=== PATIENT | female | born 1955 | race Caucasian/White ===

== ENCOUNTER 2023-09-09 09:00 | Outpatient (OUT) | payer MEDICARE, SELFPAY ==
[2023-09-09 09:39] LABS: Estimated Average Glucose 120 mg/dL; Glycohemoglobin A1C 5.8 % (4.5-6.2)
[2023-09-09 10:18] LABS: Alanine Aminotransferase 39 U/L (14-59); Albumin Globulin Ratio 0.9; Albumin Level 3.2 g/dL (3.4-5.0); Alkaline Phosphatase 109 U/L (46-116); Anion Gap 11.8; Aspartate Amino Transferase 24 U/L (15-37); BUN Creatinine Ratio 18.5; Bilirubin Total 0.4 mg/dL (0.2-1.0); Calcium 9.2 mg/dL (8.5-10.1); Carbon Dioxide 30.6 mmol/L (21.0-32.0); Chloride 106 mmol/L (98-107); Chol HDL Ratio 2.9; Cholesterol 155 mg/dL (<=200); Estimated GFR (African America >60 (>=60); Estimated GFR (Non-African Ame >60 (>=60); Free T3 2.31 pg/mL (2.18-3.98); Globulin 3.6 g/dL; Glucose 120 mg/dL (74-106); HDL Cholesterol 54 mg/dL (40-60); Potassium 4.4 mmol/L (3.5-5.1); Sodium 144 mmol/L (136-145); Thyroid Stimulating Hormone 0.522 uIU/mL (0.358-3.740); Total Protein 6.8 g/dL (6.4-8.2); Triglycerides 125 mg/dL (<=150)
[2023-09-09 10:36] LABS: Basophils Absolute Auto 0.1 10^3/uL (0.0-0.1); Basophils Percent Auto 0.7 % (0.2-2.0); Eosinophils Absolute Auto 0.1 10^3/uL (0.0-0.7); Eosinophils Percent Auto 1.7 % (0.9-7.0); Hemoglobin 14.5 g/dL (12.0-16.0); Immature Granulocytes Abs Auto 0.03 10^3/uL (0.00-0.03); Immature Granulocytes Pct Auto 0.4 % (0.0-0.5); Lymphocytes Percent Auto 36.4 % (20.5-60.0); Mean Corpuscular HGB Conc 32.2 g/dL (29.9-35.2); Mean Corpuscular Hemoglobin 31.1 pg (26.7-34.0); Mean Corpuscular Volume 96.6 fL (81.0-99.0); Mean Platelet Volume 11.1 fL (9.5-13.5); Monocytes Absolute Auto 0.6 10^3/uL (0.3-0.8); Monocytes Percent Auto 7.8 % (1.7-12.0); Neutrophils Absolute Auto 4.4 10^3/uL (1.4-6.5); Platelet Count 224 10^3/uL (150-450); Red Blood Count 4.66 10^6/uL (4.20-5.40); Red Cell Distribution Width 13.1 % (11.0-15.0); White Blood Count 8.2 10^3/uL (4.0-11.0)
[2023-09-09 13:21] LABS: Occult Blood Positive
== END 2023-09-09 09:01 | disposition home or self-care (01) ==
LOC: LAB 09:03
PROVIDERS: PCP Family Medicine; Visit Provider Family Medicine
DX: E03.9 Hypothyroidism, unspecified (principal); I10 Essential (primary) hypertension; J44.9 Chronic obstructive pulmonary disease, unspecified; E78.5 Hyperlipidemia, unspecified
CPT/HCPCS: 36415; 80053; 80061; 82306; 83036; 83525; 83540; 84436; 84443; 84481; 85025; G0328

== ENCOUNTER 2023-09-15 12:54 | Outpatient (OUT) | payer MEDICARE, SELFPAY | END 2023-09-15 12:55 | disposition home or self-care (01) | LOC: MN 12:55 | PROVIDERS: PCP Family Medicine | DX: E11.8 Type 2 diabetes mellitus with unspecified complications (principal) | CPT/HCPCS: 95250; G0108 ==

== ENCOUNTER 2024-07-20 11:27 | Outpatient (OUT) | payer MEDICARE, SELFPAY ==
[2024-07-20 12:02] LABS: Basophils Percent Auto 0.5 % (0.2-2.0); Eosinophils Absolute Auto 0.2 10^3/uL (0.0-0.7); Eosinophils Percent Auto 1.8 % (0.9-7.0); Hematocrit 44.9 % (36.0-48.0); Hemoglobin 15.3 g/dL (12.0-16.0); Immature Granulocytes Abs Auto 0.02 10^3/uL (0.00-0.03); Immature Granulocytes Pct Auto 0.2 % (0.0-0.5); Lymphocytes Absolute Auto 3.4 10^3/uL (1.2-3.8); Lymphocytes Percent Auto 39.7 % (20.5-60.0); Mean Corpuscular HGB Conc 34.1 g/dL (29.9-35.2); Mean Corpuscular Hemoglobin 31.2 pg (26.7-34.0); Mean Corpuscular Volume 91.6 fL (81.0-99.0); Mean Platelet Volume 10.3 fL (9.5-13.5); Monocytes Absolute Auto 0.7 10^3/uL (0.3-0.8); Monocytes Percent Auto 8.8 % (1.7-12.0); Neutrophils Absolute Auto 4.1 10^3/uL (1.4-6.5); Platelet Count 223 10^3/uL (150-450); Red Cell Distribution Width 12.4 % (11.0-15.0); White Blood Count 8.4 10^3/uL (4.0-11.0)
[2024-07-20 12:10] LABS: Estimated Average Glucose 114 mg/dL; Glycohemoglobin A1C 5.6 % (4.5-6.2)
[2024-07-20 12:28] LABS: Alanine Aminotransferase 57 U/L (14-59); Albumin Level 3.4 g/dL (3.4-5.0); Alkaline Phosphatase 106 U/L (46-116); Anion Gap 9.8; Aspartate Amino Transferase 31 U/L (15-37); BUN Creatinine Ratio 18.2; Bilirubin Total 0.5 mg/dL (0.2-1.0); Calcium 9.3 mg/dL (8.5-10.1); Carbon Dioxide 32.6 mmol/L (21.0-32.0); Chloride 106 mmol/L (98-107); Cholesterol 160 mg/dL (<=200); Estimated GFR (African America >60 (>=60 mL/min/1.73m^2); Estimated GFR (Non-African Ame >60 (>=60 mL/min/1.73m^2); Free T3 2.65 pg/mL (2.18-3.98); Globulin 3.5 g/dL; Glucose 104 mg/dL (74-106); HDL Cholesterol 53 mg/dL (40-60); Potassium 4.4 mmol/L (3.5-5.1); Sodium 144 mmol/L (136-145); Thyroid Stimulating Hormone 0.075 uIU/mL (0.358-3.740); Total Protein 6.9 g/dL (6.4-8.2); Triglycerides 194 mg/dL (<=150); VLDL CHOLESTEROL 38.8 mg/dL
== END 2024-07-20 11:28 | disposition home or self-care (01) ==
LOC: LAB 11:29
PROVIDERS: PCP Family Medicine; Visit Provider Family Medicine
DX: I10 Essential (primary) hypertension (principal); E05.90 Thyrotoxicosis, unspecified without thyrotoxic crisis or storm; E78.5 Hyperlipidemia, unspecified; R53.83 Other fatigue; R73.09 Other abnormal glucose; J44.1 Chronic obstructive pulmonary disease with (acute) exacerbation; E05.00 Thyrotoxicosis with diffuse goiter without thyrotoxic crisis or storm; Z12.12 Encounter for screening for malignant neoplasm of rectum; E03.9 Hypothyroidism, unspecified
CPT/HCPCS: 36415; 80053; 80061; 83036; 84436; 84443; 84481; 85025

== ENCOUNTER 2024-08-03 10:48 | Outpatient (OUT) | payer MEDICARE, SELFPAY ==
--- NOTE | 2024-08-03 10:52 | MM_ITS ---
Patient Name: KHALIDA PRUITT MR#: [id number] : 1955 Exam Date: 08/03/2024 Ordering Doctor: DR Sarbjit Pink . RADIOLOGY REPORT PROCEDURE: MM TOMOSYNTHESIS SCREENING BI COMPARISON: MG MAMM SCREEN 3D BARRY CAD, 10/09/2022. MG MAMM SCREEN BARRY W CAD, 03/16/2019. MG MAMM BARRY SCRN W CAD DIG, 05/17/2016. MG MAMM BARRY SCRN W CAD DIG, 11/10/2012. INDICATIONS: Screening for malignant neoplasm Calculator Name NCI Breast Cancer Risk Assessment Tool 5 Year Breast Cancer Risk 2.90% Lifetime Breast Cancer Risk 8.90% Personal Breast Cancer No Personal Ovarian Cancer No Treatments None Family Cancers Mother with breast cancer at age 50. LOCATION: [facility] BREAST COMPOSITION: The breasts are almost entirely fatty. FINDINGS: DIAGNOSTIC CATEGORY 1--NEGATIVE. LEFT BREAST: No significant suspicious finding. RIGHT BREAST: No significant suspicious finding. RECOMMENDATIONS: ROUTINE MAMMOGRAM AND CLINICAL EVALUATION IN 12 MONTHS. PLEASE NOTE: A NORMAL MAMMOGRAM DOES NOT EXCLUDE THE POSSIBILITY OF BREAST CANCER. A CLINICALLY SUSPICIOUS PALPABLE LUMP SHOULD BE BIOPSIED. Dictated by: Arpan Giron DO on 08/03/2024 at 16:28 Approved by: Arpan Giron DO on 08/03/2024 at 16:28
--- OUTSIDE RECORDS SUMMARY | 2024-08-03 10:52 | XMS_ITS | CCD ---
Author Organization [facility] Care Team Providers Care Steward/[employer] Name Role Phone SHAD ., DR BLANCHARD Primary Care Unavailable NTAALIYAY ., DR BLANCHARD Admitting Unavailable HOY ., DR BLANCHARD Attending Unavailable HOY ., DR BLANCHARD Consulting Unavailable ASHWINI, DR BONG Slater Consulting Unavailable HOY ., DR BLANCHARD Primary Care Unavailable HOY ., DR BLANCHARD Admitting Unavailable HOY ., DR BLANCHARD Attending Unavailable HOY ., DR BLANCHARD Consulting Unavailable EFRAÍN STUBBS Attending Unavailable Allergies Allergy Classification Reported Allergen(s) Allergy Type Date of Onset Reaction(s) Facility (1 source) Morphine Drug Allergy 03-19-[address] [facility] Repository Problems Active Problems Problem Classification Problem Date Documented Da te Episodic/Chronic Disorders of lipid metabolism (4 sources) Pure hyperglyceridemia; Translations: [PURE HYPERGLYCERIDEMIA] Onset: 03-18-2022 Chronic Nutritional deficiencies (1 source) Vitamin D deficiency, unspecified; Translations: [VITAMIN D DEFICIENCY UNSPECIFIED] Onset: 03-20-2022 Chronic Thyroid disorders (1 source) Thyrotoxicosis, unspecified without thyrotoxic crisis or storm; Translations: [THYROTOXICOS UNS NO THYROTOX CRISIS] Onset: 03-20-2022 Chronic Past or Other Problems Problem Classification Problem Date Documented Da te Episodic/Chronic Deficiency and other anemia (1 source) Anemia, unspecified; Translations: [ANEMIA UNSPECIFIED] Onset: 03-20-2022 Episodic Diabetes mellitus without complication (1 source) Hyperglycemia, unspecified; Translations: [HYPERGLYCEMIA UNSPECIFIED] Onset: 03-20-2022 Episodic Malaise and fatigue (1 source) Other fatigue; Translations: [OTHER FATIGUE] Onset: 03-20-2022 Episodic Other aftercare (1 source) Other intermodal truck driver (current) drug therapy; Translations: [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 Admission #: [id number] Family : Order #: [id number] CLICK HERE TO VIEW EXAM RADIOLOGY REPORT PROCEDURE: MAMMOGRAM SCREENING 3D BILATERAL CAD COMPARISON: MG MAMM SCREEN BARRY W CAD, 03/16/2019. MG MAMM BARRY SCRN W CAD DIG, 05/17/2016. MG MAMM BARRY SCRN W CAD DIG, 05/16/2015. DIGITIZED_MAMMO, 03/28/2009. INDICATIONS: Screening mammography Calculator Name NCI Breast Cancer Risk Assessment Tool 5 Year Breast Cancer Risk 2.90% Lifetime Breast Cancer Risk 9.70% Personal Breast Cancer No Personal Ovarian Cancer No Treatments None Family Cancers Mother with breast cancer at age 50. LOCATION: [facility] BREAST COMPOSITION: Almost entirely fatty. FINDINGS: DIAGNOSTIC CATEGORY 1--NEGATIVE. RIGHT BREAST: No significant suspicious finding. No significant change has occurred. LEFT BREAST: No significant suspicious finding. No significant change has occurred. RECOMMENDATIONS: ROUTINE MAMMOGRAM AND CLINICAL EVALUATION IN 12 MONTHS. PLEASE NOTE: A NORMAL MAMMOGRAM DOES NOT EXCLUDE THE POSSIBILITY OF BREAST CANCER. A CLINICALLY SUSPICIOUS PALPABLE LUMP SHOULD BE BIOPSIED. Dictated by: Bong Cordon M.D. on 10/09/2022 at 12:14 Approved by: Bong Cordon M.D. on 10/09/2022 at 12:[address] [facility] CBC AUTO DIFFon 03-18-2022 BASO # 0.1 103/ul Normal 0.0-0.[address] [facility] Comment on above: Performed By: #### C BC #### [facility] [address] [address] [address] Néstor Serna Basophils/100 WBC (Bld) 0.6 % Normal 0.2-2.0 [facility] Comment on above: Performed By: #### C BC #### [facility] [address] [place] [address] Dr. Néstor Serna EO # 0.2 103/ul Normal 0.0-0.[address] [facility] Comment on above: Performed By: #### C BC #### [facility] [address] [place] [address] Dr. Néstor Serna Eosinophils/100 WBC (Bld) 1.9 % Normal 0.9-7.[address] [facility] Comment on above: Performed By: #### C BC #### [facility] [address] [place] [address] Dr. Néstor Serna Erythrocyte distribution width (RBC) [Ratio] 12.6 % Normal 11.0-15.[address] [facility] Comment on above: Performed By: #### C BC #### [facility] [address] [place] [address] Dr. Néstor Serna Hematocrit (Bld) [Volume fraction] 45.2 % Normal 36.0-48.0 [facility] Comment on above: Performed By: #### C BC #### [facility] [address] [place] [address] Dr. Néstor Serna Hemoglobin (Bld) [Mass/Vol] 14.9 g/dL Normal 12.0-16.[address] [facility] Comment on above: Performed By: #### C BC #### [facility] [address] [place] [address] Dr. Néstor Serna IG # 0.02 10e3/ul Normal 0.00-0.[address] [facility] Comment on above: Performed By: #### C BC #### [facility] [address] [place] [address] Dr. Néstor Serna IG % 0.3 % Normal 0.0-0.[address] [facility] Comment on above: Performed By: #### C BC #### [facility] [address] [place] [address] Dr. Néstor Serna LYMPH # 3.3 103/ul Normal 1.2-3.[address] [facility] Comment on above: Performed By: #### C BC #### [facility] [address] [place] [address] Dr. Néstor Serna Lymphocytes/100 WBC (Bld) 41.6 % Normal 20.5-60.0 [facility] Comment on above: Performed By: #### C BC #### [facility] [address] [place] [address] Dr. Néstor Serna MANUAL DIFF REQ NO Normal [facility] Comment on above: Performed By: #### C BC #### [facility] [address] [place] [address] Dr. Néstor Serna MCH (RBC) [Entitic mass] 30.7 pg Normal 26.7-34.0 [facility] Comment on above: Performed By: #### C BC #### [facility] [address] [place] [address] Dr. Nésotr Serna MCHC (RBC) [Mass/Vol] 33.0 g/dL Normal 29.9-35.[address] [facility] Comment on above: Performed By: #### C BC #### [facility] [address] [place] [address] Dr. Néstor Serna MCV (RBC) [Entitic vol] 93.2 fL Normal 81.0-99.0 [facility] Comment on above: Performed By: #### C BC #### [facility] [address] [place] [address] Dr. Néstor Serna MONO # 0.5 103/ul Normal 0.3-0.8 [facility] Comment on above: Performed By: #### C BC #### [facility] [address] [place] [address] Dr. Néstor Serna Monocytes/100 WBC (Bld) 6.5 % Normal 1.7-12.[address] [facility] Comment on above: Performed By: #### C BC #### [facility] [address] [place] [address] Dr. Néstor Serna NEUT # 3.9 103/ul Normal 1.4-6.[address] [facility] Comment on above: Performed By: #### C BC #### [facility] [address] [place] [address] Dr. Néstor Serna Neutrophils/100 WBC (Bld) 49.1 % Normal 43.0-75.0 [facility] Comment on above: Performed By: #### C BC #### [facility] [address] [place] [address] Dr. Néstor Serna Platelet mean volume (Bld) [Entitic vol] 10.4 fL Normal 9.5-13.5 [facility] Comment on above: Performed By: #### C BC #### [facility] [address] [place] [address] Dr. Néstor Serna PLT 212 103/ul Normal 150-[address] [facility] Comment on above: Performed By: #### C BC #### [facility] [address] [place] [address] Dr. Néstor Serna RBC 4.85 106/ul Normal 4.20-5.40 [facility] Comment on above: Performed By: #### C BC #### [facility] [address] [place] [address] Dr. Néstor Serna WBC 7.8 103/ul Normal 4.0-11.0 [facility] Comment on above: Performed By: #### C BC #### [facility] [address] [place] [address] Dr. Néstor Serna FREE T3on 03-18-2022 FREE T3 2.36 pg/mlL Normal 2.18-3.98 [facility] Comment on above: Performed By: #### T 4, TSH, CMP, FT3, LIPID #### [facility] [address] [place] [address] Dr. Néstor Serna GLYCOHEMOGLOBIN A1Con 2021 ADA RECOMMENDATION SEE BELOW Normal [facility] Comment on above: Result Comment: ADA RECOMMENDED LIMIT 4.0 - 6.0 ADA THERAPEUTIC TARGET < 7.0 ACTION SUGGESTED > 7.0 Performed By: #### A 1C #### [facility] [address] [place] [address] Dr. Néstor Serna Glucose [Mass/Vol] 128 mg/dL Normal [facility] Comment on above: Performed By: #### A 1C #### [facility] [address] [place] [address] Dr. Néstor Serna HbA1c (Bld) [Mass fraction] 6.1 % Normal 4.5-6.2 [facility] Comment on above: Performed By: #### A 1C #### [facility] [address] [place] [address] Dr. Néstor Serna LIPID PROFILEon 03-18-2022 CHOL-HDL RATIO NORM SEE BELOW Normal [facility] Comment on above: Result Comment: 3.3 - 4.4 LOW RISK 4.4 - 7.1 AVERAGE RISK 7.1 - 11.0 MODERATE RISK >11.0 HIGH RISK Performed By: #### T 4, TSH, CMP, FT3, LIPID #### [facility] [address] [place] [address] Dr. Néstor Serna Cholesterol [Mass/Vol] 162 mg/dL Normal <=200 [facility] Comment on above: Performed By: #### T 4, TSH, CMP, FT3, LIPID #### [facility] [address] [place] [address] Dr. Néstor Serna Cholesterol in HDL [Mass/Vol] 49 mg/dL Normal 40-60 [facility] Comment on above: Performed By: #### T 4, TSH, CMP, FT3, LIPID #### [facility] [address] [place] [address] Dr. Néstor Serna Cholesterol in LDL [Mass/Vol] 70.0 mg/dL Normal [facility] Comment on above: Performed By: #### T 4, TSH, CMP, FT3, LIPID #### [facility] [address] [place] [address] Dr. Néstor Serna Cholesterol.total/Cho lesterol in HDL [Mass ratio] 3.3 {ratio} Normal [facility] Comment on above: Performed By: #### T 4, TSH, CMP, FT3, LIPID #### [facility] [address] [place] [address] Dr. Néstor Serna HDL NORMAL > or = 60 mg/dl - LOW CARDIOVASCULAR RISK <40 mg/dl - HIGH CARDIOVASCULAR RISK Normal [facility] Comment on above: Performed By: #### T 4, TSH, CMP, FT3, LIPID #### [facility] [address] [address] [address] Néstor Serna LDL CALC NORMAL SEE BELOW Normal [facility] Comment on above: Result Comment: <100 mg/dl OPTIMAL 100 - 129 mg/dl NEAR OR ABOVE OPTIMAL 130 - 159 mg/dl BORDERLINE HIGH 160 - 189 mg/dl HIGH >190 mg/dl VERY HIGH Performed By: #### T 4, TSH, CMP, FT3, LIPID #### [facility] [address] [address] [address] Néstor Serna Triglyceride [Mass/Vol] 215 mg/dL Critically high <=150 [facility] Comment on above: Performed By: #### T 4, TSH, CMP, FT3, LIPID #### [facility] [address] [place] [address] Dr. Néstor Serna VLDL CALC 43.0 mg/dL Normal [facility] Comment on above: Performed By: #### T 4, TSH, CMP, FT3, LIPID #### [facility] [address] [place] [address] Dr. Néstor Serna PROF 14(COMP METB)on 022 Albumin [Mass/Vol] 3.4 g/dL Normal 3.4-5.0 [facility] Comment on above: Performed By: #### T 4, TSH, CMP, FT3, LIPID #### [facility] [address] [place] [address] Dr. Néstor Serna Albumin/Globulin [Mass ratio] 0.9 {ratio} Normal [facility] Comment on above: Performed By: #### T 4, TSH, CMP, FT3, LIPID #### [facility] [address] [address] [address] Néstor Serna ALP [Catalytic activity/Vol] 126 U/L Critically high 46-116 [facility] Comment on above: Performed By: #### T 4, TSH, CMP, FT3, LIPID #### [facility] [address] [address] [address] Néstor Serna ALT [Catalytic activity/Vol] 59 U/L Normal 14-59 [facility] Comment on above: Performed By: #### T 4, TSH, CMP, FT3, LIPID #### [facility] [address] [address] [address] Néstor Serna Anion gap [Moles/Vol] 9.3 mmol/L Normal [facility] Comment on above: Performed By: #### T 4, TSH, CMP, FT3, LIPID #### [facility] [address] [address] [address] Néstor Serna AST [Catalytic activity/Vol] 34 U/L Normal 15-[address] [facility] Comment on above: Performed By: #### T 4, TSH, CMP, FT3, LIPID #### [facility] [address] [place] [address] Dr. Néstor Serna Bilirubin [Mass/Vol] 0.4 mg/dL Normal 0.2-1.0 [facility] Comment on above: Performed By: #### T 4, TSH, CMP, FT3, LIPID #### [facility] [address] [address] [address] Néstor Serna Calcium [Mass/Vol] 8.8 mg/dL Normal 8.5-10.1 [facility] Comment on above: Performed By: #### T 4, TSH, CMP, FT3, LIPID #### [facility] [address] [place] [address] Dr. Néstor Serna Chloride [Moles/Vol] 105 mmol/L Normal 98-[address] [facility] Comment on above: Performed By: #### T 4, TSH, CMP, FT3, LIPID #### [facility] [address] [place] [address] Dr. Néstor Serna CO2 [Moles/Vol] 30.7 mmol/L Normal 21.0-32.0 [facility] Comment on above: Performed By: #### T 4, TSH, CMP, FT3, LIPID #### [facility] [address] [place] [address] Dr. Néstor Serna Creatinine [Mass/Vol] 0.64 mg/dL Normal 0.55-1.[address] [facility] Comment on above: Performed By: #### T 4, TSH, CMP, FT3, LIPID #### [facility] [address] [address] [address] Néstor Serna EGFR-AF BURMESE >60 Normal >=60 [facility] Comment on above: Performed By: #### T 4, TSH, CMP, FT3, LIPID #### [facility] [address] [place] [address] Dr. Néstor Serna EGFR-NON AF BURMESE >60 Normal >=60 [facility] Comment on above: Performed By: #### T 4, TSH, CMP, FT3, LIPID #### [facility] [address] [place] [address] Dr. Néstor Serna Globulin (S) [Mass/Vol] 3.6 g/dL Normal [facility] Comment on above: Performed By: #### T 4, TSH, CMP, FT3, LIPID #### [facility] [address] [place] [address] Dr. Néstor Serna Glucose [Mass/Vol] 103 mg/dL Normal 74-106 [facility] Comment on above: Performed By: #### T 4, TSH, CMP, FT3, LIPID #### [facility] [address] [place] [address] Dr. Néstor Serna Potassium [Moles/Vol] 4.0 mmol/L Normal 3.5-5.1 [facility] Comment on above: Performed By: #### T 4, TSH, CMP, FT3, LIPID #### [facility] [address] [address] [address] Néstor Serna Protein [Mass/Vol] 7.0 g/dL Normal 6.4-8.2 [facility] Comment on above: Performed By: #### T 4, TSH, CMP, FT3, LIPID #### [facility] [address] [place] [address] Dr. Néstor Serna Sodium [Moles/Vol] 141 mmol/L Normal 136-145 [facility] Comment on above: Performed By: #### T 4, TSH, CMP, FT3, LIPID #### [facility] [address] [address] [address] Néstor Serna Urea nitrogen [Mass/Vol] 15.0 mg/dL Normal 7.0-18.0 [facility] Comment on above: Performed By: #### T 4, TSH, CMP, FT3, LIPID #### [facility] [address] [place] [address] Dr. Néstor Serna Urea nitrogen/Creatinine [Mass ratio] 23.4 mg/mg Normal [facility] Comment on above: Performed By: #### T 4, TSH, CMP, FT3, LIPID #### [facility] [address] [address] [address] Néstor Serna T4on 03-18-2022 T4 [Mass/Vol] 13.80 ug/dL Normal 4.80-13.90 [facility] Comment on above: Performed By: #### T 4, TSH, CMP, FT3, LIPID #### [facility] [address] [address] [address] Néstor Serna TSHon 03-18-2022 TSH 0.123 uIU/mL Critically low 0.358-3.740 [facility] Comment on above: Performed By: #### T 4, TSH, CMP, FT3, LIPID #### [facility] [address] [address] [address] Néstor Serna VITAMIN D 25 OHon 03-18-2022 VIT D 25-OH 29.3 ng/mL Normal [facility] Comment on above: Performed By: #### V ITAD #### [facility] [address] [address] [address] Néstor Serna VIT D RANGES SEE BELOW Normal [facility] Comment on above: Result Comment: <20 ng/mL Vit D deficient 20 - <30 ng/mL Vit D insufficient 30 - 100 ng/mL Vit D sufficient >100 ng/mL Potential Toxicity Performed By: #### V ITAD #### [facility] [address] [place] [address] Dr. Néstor Serna Encounters Encounter Date Encounter Type Care Provider Facility Start: 11-24-2023 End: 11-24-2023 ambulatory EFRAÍN STUBBS Not Available Start: 10-09-2022 End: 10-10-[address] SANTO KULKARNI . Facility[facility] Start: 03-18-2022 End: 03-19-[address] SANTO KULKARNI . Facility[facility] Payers Date Payer Category Payer Private Health Insurance [id number] 1959 Medicare [id number] 1959 Private Health Insurance CVL [id number] 1955 Unknown [id number] 1955 Unknown [id number] 1955 Unknown [id number] Summary Purpose Family History No Family History Records FoundNo Family History Records Found Advance Directives No Advanced Directives Records FoundNo Advanced Directives Records Found Additional Source Comments INFORMATION SOURCE (unrecogn ized section and content) DATE CREATED AUTHOR 10/10/2022 [facility] DATE CREATED AUTHOR AUTHOR'S MELISSA ATKATHE 11/25/2023 [facility] EPIC FOR RECORDS PERTAINING TO PATIENTS WHO ARE OR HAVE BEEN ENROLLED IN A CHEMICAL DEPENDENCY/SUBSTANCEABUSE PROGRAM, SOME INFORMATION MAY BE OMITTED. This clinical summary was aggregated from multiple sources. Caution should be exercised in using it in the provision of clinical care. This summary normalizes information from multiple sources, and as a consequence, information in this document may materially change the coding, format and clinical context of patient data. In addition, data may be omitted in some cases. CLINICAL DECISIONS SHOULD BE BASED ON THE PRIMARY CLINICAL RECORDS. [facility] provides no warranty or guarantee of the accuracy or completeness of information in this document.
== END 2024-08-03 10:49 | disposition home or self-care (01) ==
LOC: MAMMO 10:49
PROVIDERS: PCP Family Medicine; Visit Provider Family Medicine
DX: Z12.31 Encounter for screening mammogram for malignant neoplasm of breast (principal); Z80.3 Family history of malignant neoplasm of breast
CPT/HCPCS: 77063; 77067

== ENCOUNTER 2024-09-20 10:20 | Outpatient (OUT) | payer MEDICARE, SELFPAY ==
[2024-09-20 11:29] LABS: Free T3 2.61 pg/mL (2.18-3.98); Thyroid Stimulating Hormone 0.163 uIU/mL (0.358-3.740)
== END 2024-09-20 10:21 | disposition home or self-care (01) ==
LOC: LAB 10:21
PROVIDERS: PCP Family Medicine; Visit Provider Family Medicine
DX: E03.9 Hypothyroidism, unspecified (principal)
CPT/HCPCS: 36415; 84436; 84443; 84481

== ENCOUNTER 2025-01-17 15:53 | Outpatient (OUT) | payer MEDICARE, SELFPAY ==
--- OUTSIDE RECORDS SUMMARY | 2024-12-29 09:15 | XMS_ITS ---
Author Organization The [facility] in [place] Address [address] [place] [address] Care Team Providers Care Security Representative Name Role Phone Jefe Pink Primary Care Provider [phone] Allergies Allergen (clinical drug ingredient) Drug/Non Drug Allergy documented on EMR Reaction Allergy Type Onset Date Status Substance with sulfonamide structure and antibacterial mechanism of action (substance) Sulfa Antibiotics face turned red Drug Allergy Active morphine Morphine nausea and vomiting Drug Allergy Active REASON FOR VISIT Eczema- Bilateral Feet Medications Medication SIG (Take, Route, Frequency, Duration) Notes Start Date End Date Status Latanoprost 0.005 % Ophthalmic for 25 Days Active Lisinopril 20 MG 1 tablet Orally Once a day for 30 days 08/03/2024 Active Levothyroxine Sodium 112 MCG 1 tablet in the morning on an empty stomach Orally Once a day for 90 days Active Nebulizer Mask Adult - as directed Active Nebulizer - as directed Active Fish Oil 1000 MG 3 capsule Orally Once a day Active Dorzolamide HCl-Timolol Mal 2-0.5 % instill 1 DROP IN BOTH EYES TWICE DAILY Ophthalmic for 50 Days Active Lancets - as directed for 30 days test daily DX: E11.9 09/10/2023 Active Glucose Meter Test - as directed In Vitr o daily for 30 days glucose meter DX E11.9 09/10/2023 Active Carvedilol 6.25 mg TAKE 1 TABLET BY MOUTH TWICE DAILY WITH FOOD for 30 days Active Albuterol Sulfate (2.5 MG/3ML) 0.083% 3 mL as needed Inhalation every 6 hrs DX J44.1 for 30 days PRN 01/24/2023 Active Clobetasol Propionate 0.05 % 1 application Externally Twice a day for 10 days 12/29/2024 Active ALPRAZolam 0.5 MG 1 tablet Orally Twice a day for 30 days PRN 12/17/2024 Active Albuterol Sulfate HFA 108 (90 Base) MCG/ACT 1 puff as needed Inhalation every 4 hrs for 30 days PRN Active Breo Ellipta 100-25 MCG/ACT 1 puff Inhalation Once a day for 90 days Active Vitamin D3 50 MCG (2000 UT) 1 capsule Orally Once a day for 30 days 09/12/2023 Active True Metrix Blood Glucose Test - USE DIRECTED to test BLOOD SUGAR DAILY for 30 Active Simvastatin 40 mg TAKE 1 TABLET BY MOUTH IN THE EVENING for 90 Active Social History Tobacco Use: Social History Observation Description Date Details (start date - stop date) Former Smoker NA - NA Tobacco Use/Smoking Question Answer Notes Patient is a former smoker How long has it been since you last smoked? 6-12 months AUDIT-C (Standard) Question Answer Notes Did you have a drink containing alcohol in the p ast year? No Points 0 Interpretation Negative Vital Signs Weight 187 lbs 12/29/2024 Height 64 in 12/29/2024 Blood pressure systolic 140 mm Hg 12/30/19 25 Blood pressure diastolic 80 mm Hg 025 BMI 32.09 kg/m2 12/29/2024 Encounters Encounter Location Date Provider Diagnosis [address] [address] 12/29/2024 Jefe Pink Eczema L30.9 Assessments Encounter Date Diagnosis (ICD Code) Assessment Notes Treatment Notes Treatment Clinical Notes Section Notes 12/29/2024 Eczema (ICD-10 - L30.9) Plan Of Treatment Medication Medication Name Sig Start Date Stop Date Notes Clobetasol Propionate 0.05 % 1 applicati on Externally Twice a day for 10 days 12/29/2024 Progress Notes * Katharine PRUITT LDOB:[birth year] (69 yo F)Acc No.[id number]:12/29/2024 Progress Note Patient: Katharine ROBBINS Provider: Kuldip Pink (MATTHIEU)MD :1955 A ge:69 Y S ex:Female Date:12/29/2024 Address:[place], [id number] Check In:01:03 PM ESTCheck O ut:01:37 PM EST Subjective: * Chief Complaints: * E czema- Bilateral Feet * HPI: G eneral: getting red scaling and blisters - adn peeling hands and feet. * Active Problem List M19.90 Osteoarthritis Modified On:09/12/2022 Status:confirmed F17.210 Cigarette smoker Modified On:09/12/2022 Status:confirmed F41.9 Anxiety Modified On:09/25/2022 Status:confirmed R60.9 Edema Modified On:09/01/2023 Status:confirmed I10 Essential hypertensi on Modified On:02/25/2023 Status:confirmed M85.80 Osteopenia Modified On:09/12/2022 Status:confirmed G47.00 Insomnia Modified On:09/12/2022 Status:confirmed L30.9 Eczema Modified On:09/12/2022 Status:confirmed R14.0 Abdominal bloating Modified On:09/12/2022 Status:confirmed K57.90 Diverticulosis Modified On:09/12/2022 Status:confirmed M54.9 Back pain Modified On:09/12/2022 Status:confirmed E78.1 Hypertriglyceridemia Modified On:09/12/2022 Status:confirmed B07.8 Other viral warts Modified On:09/12/2022 Status:confirmed C51.0 Malignant neoplasm o f labium majus Modified On:09/12/2022 Status:confirmed K11.5 Sialolithiasis Modified On:09/12/2022 Status:confirmed R09.1 Pleurisy Modified On:02/05/2023 Status:confirmed B35.1 Onychomycosis Modified On:10/04/2022 Status:confirmed Z00.00 Well adult Modified On:09/01/2023 Status:confirmed E05.90 Hyperthyroidism Modified On:09/01/2023 Status:confirmed R07.89 Chest wall pain Modified On:09/12/2022 Status:confirmed M50.30 Degenerative cervica l disc Modified On:09/12/2022 Status:confirmed M54.6 Back pain, thoracic Modified On:09/12/2022 Status:confirmed E05.00 Graves' disease Modified On:09/01/2023 Status:confirmed J31.0 Chronic nonallergic rhinitis Modified On:09/12/2022 Status:confirmed M25.40 Joint effusion Modified On:09/12/2022 Status:confirmed J44.9 COPD, mild Modified On:10/04/2022 Status:confirmed K43.6 Other ventral hernia with obstruction Modified On:09/12/2022 Status:confirmed 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 Modified On:09/12/2022 Status:confirmed J44.1 COPD with exacerbati on Modified On:09/01/2023 Status:confirmed E21.3 Hyperparathyroidism Modified On:09/06/2022 Status:confirmed H40.9 Glaucoma, unspecifie d glaucoma type, unspecified laterality Modified On:09/06/2022 Status:confirmed E03.9 Hypothyroidism, unsp ecified type Modified On:09/06/2022 Status:confirmed E78.5 Hyperlipidemia, unsp ecified hyperlipidemia type Modified On:09/01/2023 Status:confirmed E11.9 Diabetes Modified On:11/20/2023 Status:confirmed I10 Hypertension Modified On:10/08/2024 Status:confirmed * Medical History: * Surgical History: T otal Abdominal Hysterectomy Right Knee Arthroscopy left shoulder surgery polypectomy vocal cords hernia repair tubal precancerous skin lesion vaginal eye surgery x3 from graves disease repair of deviated septum * Hospitalization/Major Diagno stic Procedure: Freddy reidchitis 08/2022 * Family History: F ather: , Heart Disease. M other: , accidental drowning, ovarian cancer, diagnosed with Other malignant neoplasm of unspecified site. B josie(s): alive. S ister(s): . D carlos(s): alive. 1 brother(s) , 1 sister(s) . 1 daughter(s) - healthy. .? * Social History: T obacco Use: T obacco Use/Smoking P atient is a f ormer smoker H ow long has it been since you last smoked??6-12 months D rug/Alcohol: A LYSSA-C (Standard) D id you have a drink containing alcohol in the past year? N o P oints 0 I nterpretation N egative * Medications: T akingAlbuterol Sulfate (2.5 MG/3ML) 0.083% Nebulization Solution 3 mL as needed Inhalation every 6 hrs DX J44.1 , Notes to Pharmacist: PRNAlbuterol Sulfate HFA 108 (90 Base) MCG/ACT Aerosol Solution 1 puff as needed Inhalation every 4 hrs , Notes to Pharmacist: PRNALPRAZolam 0.5 MG Tablet 1 tablet Orally Twice a day , Notes to Pharmacist: PRNBreo Ellipta(Fluticasone Furoate-Vilanterol) 100-25 MCG/ACT Aerosol Powder Breath Activated 1 puff Inhalation Once a day Carvedilol 6.25 mg Tablet TAKE 1 TABLET BY MOUTH TWICE DAILY WITH FOOD Dorzolamide HCl-Timolol Mal 2-0.5 % Solution instill 1 DROP IN BOTH EYES TWICE DAILY Ophthalmic Fish Oil 1000 MG Capsule 3 capsule Orally Once a day Glucose Meter Test(Glucose Blood) - Strip as directed In Vitro daily , Notes to Pharmacist: glucose meter DX E11.9Lancets - Miscellaneous as directed test daily, Notes to Pharmacist: DX: E11.9Latanoprost 0.005 % Solution Ophthalmic Levothyroxine Sodium 112 MCG Capsule 1 tablet in the morning on an empty stomach Orally Once a day Lisinopril 20 MG Tablet 1 tablet Orally Once a day Nebulizer - Device as directed Nebulizer Mask Adult(Respiratory Therapy Supplies) - Miscellaneous as directed Simvastatin 40 mg Tablet TAKE 1 TABLET BY MOUTH IN THE EVENING True Metrix Blood Glucose Test(Glucose Blood) - Strip USE DIRECTED to test BLOOD SUGAR DAILY Vitamin D3 50 MCG (1999 UT) Capsule 1 capsule Orally Once a day Medication List reviewed and reconciled with the patientTaking Albuterol Sulfate (2.5 MG/3ML) 0.083% Nebulization Solution 3 mL as needed Inhalation every 6 hrs DX J44.1 , Notes to Pharmacist: PRNTaking Albuterol Sulfate HFA 108 (90 Base) MCG/ACT Aerosol Solution 1 puff as needed Inhalation every 4 hrs , Notes to Pharmacist: PRNTaking ALPRAZolam 0.5 MG Tablet 1 tablet Orally Twice a day , Notes to Pharmacist: PRNTaking Breo Ellipta(Fluticasone Furoate-Vilanterol) 100-25 MCG/ACT Aerosol Powder Breath Activated 1 puff Inhalation Once a day Taking Carvedilol 6.25 mg Tablet TAKE 1 TABLET BY MOUTH TWICE DAILY WITH FOOD Taking Dorzolamide HCl-Timolol Mal 2-0.5 % Solution instill 1 DROP IN BOTH EYES TWICE DAILY Ophthalmic Taking Fish Oil 1000 MG Capsule 3 capsule Orally Once a day Taking Glucose Meter Test(Glucose Blood) - Strip as directed In Vitro daily , Notes to Pharmacist: glucose meter DX E11.9Taking Lancets - Miscellaneous as directed test daily, Notes to Pharmacist: DX: E11.9Taking Latanoprost 0.005 % Solution Ophthalmic Taking Levothyroxine Sodium 112 MCG Capsule 1 tablet in the morning on an empty stomach Orally Once a day Taking Lisinopril 20 MG Tablet 1 tablet Orally Once a day Taking Nebulizer - Device as directed Taking Nebulizer Mask Adult(Respiratory Therapy Supplies) - Miscellaneous as directed Taking Simvastatin 40 mg Tablet TAKE 1 TABLET BY MOUTH IN THE EVENING Taking True Metrix Blood Glucose Test(Glucose Blood) - Strip USE DIRECTED to test BLOOD SUGAR DAILY Taking Vitamin D3 50 MCG (1999 UT) Capsule 1 capsule Orally Once a day Medication List reviewed and reconciled with the patient * Allergies: S ulfa Antibiotics: face turned red - Criticality HighMorphine: nausea and vomitingno[Allergies Verified] Objective: * Vitals: W t:187lbs, Ht: 64 in, BP:140/80mm Hg, BMI:32.09Index, Ht-cm: 162.56 cm, Wt-k.82 kg. * Examination: A bdomen Exam:: E czema - on hand and feet. Assessment: * Assessment: 1. E czema - L30.9 (Primary) Plan: * Treatment: * Procedure Codes: * Preventive Medicine: Screenings/Counseling: B AL ACTION PLAN Above Normal BMI Follow-up D ietary management education, guidance, and counseling * * Sign off status: Completed Visit Status: C HK (Check Out) true * Provider: Kuldip Pink (MATTHIEU)MD Date: 0 12/29/2024 Generated for Humberto estrada/Claude/Laila on: 0 01/17/2025 03:58 PM EDT History and Physical Notes * HPI (History of Present Illness) Category Sub-Category Detail Notes Category Not es General getting red sca ling and blisters - adn peeling hands and feet Examination Category Sub-Category Detail Notes Category Not es Abdomen Exam: Eczema - on de leon nd and feet
--- OUTSIDE RECORDS SUMMARY | 2025-01-14 11:40 | XMS_ITS ---
Author Organization [facility] in [place] Address [address] [place] [address] Care Team Providers Care Primer Inspector Name Role Phone Jefe Pink Primary Care Provider [phone] REASON FOR VISIT refill Medications Medication SIG (Take, Route, Fr equency, Duration) Notes Start Date End Date Status ALPRAZolam 0.5 MG 1 tablet Orally Twic e a day for 30 days PRN 01/14/2025 Active Encounters Encounter Location Date Provider Diagnosis [facility] [address] [facility] [address] 01/14/2025 Jefe Pink Essential hypertens ion I10 Assessments Encounter Date Diagnosis (ICD Code) Assessment Notes Treatment Notes Treatment Clinical Notes Section Notes 01/14/2025 Essential hypertension (ICD-10 - I10) Plan Of Treatment Medication Medication Name Sig Start Date Stop Date Notes ALPRAZolam 0.5 MG 1 tablet Orally Twice a day for 30 days 01/14/2025 PRN Progress Notes * Katharine PRUITT LDOB:[birth year] (69 yo F)Acc No.[id number]:01/14/2025 Patient: Juliet KINNEYKatharine :1955 A ge:69 Y S ex:Female Address:[address] [place] [address], [address] * Refills Refill ALPRAZolam Tablet, 0.5 MG, Orally, 60, 1 tablet, Twice a day, 30 days, Refills=0 * true * Date: Generated for Humberto estrada/Claude/Gabbieitting on: 0 01/17/2025 03:57 PM EDT
--- OUTSIDE RECORDS SUMMARY | 2025-01-17 11:15 | XMS_ITS ---
Author Organization [facility] in [place] Address [address] [place] [address] Care Team Providers Care Primary Products Inspectors Name Role Phone Jefe Pink Primary Care Provider Allergies Allergen (clinical drug ingredient) Drug/Non Drug Allergy documented on EMR Reaction Allergy Type Onset Date Status Substance with sulfonamide structure and antibacterial mechanism of action (substance) Sulfa Antibiotics face turned red Drug Allergy Active morphine Morphine nausea and vomiting Drug Allergy Active REASON FOR VISIT rt leg pain, started hurting around 3 weeks ago, no injury, partial knee replacement in the knee [id number] by dr pendleton Medications Medication SIG (Take, Route, Frequency, Duration) Notes Start Date End Date Status Carvedilol 6.25 mg TAKE 1 TABLET BY MOUTH TWICE DAILY WITH FOOD for 30 days Active Clobetasol Propionate 0.05 % 1 application Externally Twice a day for 10 days 12/29/2024 Active Dorzolamide HCl-Timolol Mal 2-0.5 % instill 1 DROP IN BOTH EYES TWICE DAILY Ophthalmic for 50 Days Active Fish Oil 1000 MG 3 capsule Orally Once a day Active Meloxicam 15 MG 1 tablet Orally Once a day for 30 days 01/17/2025 Active Albuterol Sulfate (2.5 MG/3ML) 0.083% 3 mL as needed Inhalation every 6 hrs DX J44.1 for 30 days PRN 01/24/2023 Active Albuterol Sulfate HFA 108 (90 Base) MCG/ACT 1 puff as needed Inhalation every 4 hrs for 30 days PRN Active ALPRAZolam 0.5 MG 1 tablet Orally Twice a day for 30 days PRN 01/14/2025 Active Breo Ellipta 100-25 MCG/ACT 1 puff Inhalation Once a day for 90 days Active Vitamin D3 50 MCG (1999 UT) 1 capsule Orally Once a day for 30 days 09/12/2023 Active Lisinopril 20 MG 1 tablet Orally Once a day for 30 days 08/03/2024 Active Nebulizer - as directed Active Nebulizer Mask Adult - as directed Active Simvastatin 40 mg TAKE 1 TABLET BY MOUTH IN THE EVENING for 90 Active True Metrix Blood Glucose Test - USE DIRECTED to test BLOOD SUGAR DAILY for 30 Active Latanoprost 0.005 % Ophthalmic for 25 Days Active Levothyroxine Sodium 112 MCG 1 tablet in the morning on an empty stomach Orally Once a day for 90 days Active Glucose Meter Test - as directed In Vitr o daily for 30 days glucose meter DX E11.9 09/10/2023 Active Lancets - as directed for 30 days test daily DX: E11.9 09/10/2023 Active Social History Tobacco Use: Social History [...] ast year? No Points 0 Interpretation Negative Problems Problem Type SNOMED Code ICD Code Onset Dates Problem Status W/U Status Risk Notes Problem Knee osteoarthri tis (M17.9) Active confirmed Vital Signs Weight 187.6 lbs 01/17/2025 Height 64 in 01/17/2025 Blood pressure systolic 154 mm Hg 01/18/20 25 Blood pressure diastolic 90 mm Hg 025 BMI 32.2 kg/m2 01/17/2025 Encounters Encounter Location Date Provider Diagnosis [facility] [address] [place] [address] 01/17/2025 Jefe Hoy Knee osteoarthritis M17.9 Assessments Encounter Date Diagnosis (ICD Code) Assessment Notes Treatment Notes Treatment Clinical Notes Section Notes 01/17/2025 Knee osteoarthritis (ICD-10 - M17.9) Plan Of Treatment Medication Medication Name Sig Start Date Stop Date Notes Meloxicam 15 MG 1 tablet Orally Once a day for 30 days Pending Test Test Name Order Date XR KNEE RT 3V 01/17/2025 Medications Administered Medication Instructions Date of Administration Dosage Notes Triamcinolone 40 mg/ml 01/17/2025 80 mg Progress Notes * Katharine PRUITT LDOB:[birth year] (69 yo F)Acc No.[id number]:01/17/2025 UNLOCKED PROGRESS NOTE Progress Note Patient: Katharine ROBBINS Provider: Kuldip Pink ([facility])MD :1955 A ge:69 Y S ex:Female Date:01/17/2025 Address:[address] [place], [place] [address], [id number] Check In:03:09 PM ESTCheck O ut:03:39 PM EST Subjective: * Chief Complaints: * 1 . Rt leg pain, started hurting around 3 weeks ago, no injury, partial knee [place] in the [place] [address]. * HPI: G eneral: R leg poain and increasing with increasing activiy. * Medical History: S ialolithiasis, Essential hypertension, Pleurisy, Other viral warts, Abdominal bloating, Anxiety, Well adult, Onychomycosis, Edema, Eczema, COPD, mild, Osteoarthritis, Chest wall pain, Joint effusion, Other ventral hernia with obstruction, Osteopenia, Malignant neoplasm of labium majus, Diverticulosis, Well adult, Insomnia, Degenerative cervical disc, Back pain, Graves' disease, Thyrotoxic exophthalmos, Back pain, thoracic, Cigarette smoker, Hypertriglyceridemia, Hyperthyroidism, Chronic nonallergic rhinitis. * Surgical History: T otal Abdominal Hysterectomy , Right Knee Arthroscopy , left shoulder surgery , polypectomy vocal cords , hernia repair , tubal , precancerous skin lesion vaginal , eye surgery x3 from graves disease , repair of deviated septum . * Hospitalization/Major Diagno stic Procedure: B ronchitis 08/2022. * Family History: F ather: , Heart Disease. M other: , accidental drowning, ovarian cancer, diagnosed with Other malignant neoplasm of unspecified site. B reeder(s): alive. S ister(s): . D carlos(s): alive. [...] I nterpretation N egative * Medications: T aking Albuterol Sulfate (2.5 MG/3ML) 0.083% Nebulization Solution 3 mL as needed Inhalation every 6 hrs DX J44.1 , Notes to Pharmacist: PRN, Taking Albuterol Sulfate HFA 108 (90 Base) MCG/ACT Aerosol Solution 1 puff as needed Inhalation every 4 hrs , Notes to Pharmacist: PRN, Taking ALPRAZolam 0.5 MG Tablet 1 tablet Orally Twice a day , Notes to Pharmacist: PRN, Taking Breo Ellipta(Fluticasone Furoate-Vilanterol) 100-25 MCG/ACT Aerosol Powder Breath Activated 1 puff Inhalation Once a day , Taking Carvedilol 6.25 mg Tablet TAKE 1 TABLET BY MOUTH TWICE DAILY WITH FOOD , Taking Clobetasol Propionate 0.05 % Gel 1 application Externally Twice a day , Taking Dorzolamide HCl-Timolol Mal 2-0.5 % Solution instill 1 DROP IN BOTH EYES TWICE DAILY Ophthalmic , Taking Fish Oil 1000 MG Capsule 3 capsule Orally Once a day , Taking Glucose Meter Test(Glucose Blood) - Strip as directed In Vitro daily , Notes to Pharmacist: glucose meter DX E11.9, Taking Lancets - Miscellaneous as directed test daily, Notes to Pharmacist: DX: E11.9, Taking Latanoprost 0.005 % Solution Ophthalmic , Taking Levothyroxine Sodium 112 MCG Capsule 1 tablet in the morning on an empty stomach Orally Once a day , Taking Lisinopril 20 MG Tablet 1 tablet Orally Once a day , Taking Nebulizer - Device as directed , Taking Nebulizer Mask Adult(Respiratory Therapy Supplies) - Miscellaneous as directed , Taking Simvastatin 40 mg Tablet TAKE 1 TABLET BY MOUTH IN THE EVENING , Taking True Metrix Blood Glucose Test(Glucose Blood) - Strip USE DIRECTED to test BLOOD SUGAR DAILY , Taking Vitamin D3 50 MCG (2000 UT) Capsule 1 capsule Orally Once a day , Medication List reviewed and reconciled with the patient * Allergies: S ulfa Antibiotics: face turned red - Criticality High, Morphine: nausea and vomiting. Objective: * Vitals: W t:187.6lbs, Ht: 64 in, BP:154/90mm Hg, BMI:32.2Index, Ht-cm: 162.56 cm, Wt-k.09 kg. * Examination: A bdomen Exam:: R knee with medial tendnerss - no pain iwht opening space. Assessment: * Assessment: 1. K nee osteoarthritis - M17.9 (Primary) Plan: * Treatment: * Therapeutic Injections: Triamcinolone 40 mg/ml : 80 mg (Route: Intramuscular) given by ALEXIS Hurt on right arm intramuscular (Knee osteoarthritis) * Procedure Codes: J 3301 TMC ACET,PER 10MG. * Preventive Medicine: Screenings/Counseling: B SD ACTION PLAN Above Normal BMI Follow-up D ietary management education, guidance, and counseling * * Electronic signature of Jefe Pink MD, [phone] on 01/17/2025 at 03:58 PM EDT Sign off status: Pending Visit Status: C HK (Check Out) * Provider: Kuldip Pink ([facility])MD Date: 0 01/17/2025 Generated for Printi ng/Fapiag/eTransmitting on: 0 01/17/2025 03:58 PM EDT History and Physical Notes * HPI (History of Present Illness) Category Sub-Category Detail Notes Category Not es General R leg poain and increasing with increasing activiy Examination Category Sub-Category Detail Notes Category Not es Abdomen Exam: R knee with me dial tendnerss - no pain iwht opening space
--- OUTSIDE RECORDS SUMMARY | 2025-01-17 15:58 | XMS_ITS | Clinical Summary ---
Author Organization [facility] Address [address] [place] [address] Care Team Providers Care Completion Supervisor Name Role Phone Sarbjit Pink MD Primary Care Provider [phone] Allergies Active Allergy Reactions Criticality Noted Date Comments Morphine GI intolerance 11/24/2023 Sulfa Antibiotics 11/24/2023 Other Reaction(s): face turned red Medications ALPRAZolam (Xanax) 0.5 MG tablet Take 0.5 mg by mouth as needed in the morning and 0.5 mg as needed in the evening. Active Blood Glucose Monitoring Suppl (True Metrix Meter) w/Device kit 4 Active cholecalciferol (Vitamin D-3) 50 MCG (1999 UT) capsule 1 capsule 1 (one) time each day at the same time 4 Active dorzolamide-tasha olol (Cosopt) 2-0.5 % ophthalmic solution Active Breo Ellipta 100-25 MCG/ACT aerosol powder 1 puff 1 (one) time each day at the same time Active Glucose Meter Test test strip 1 (one) time each day at the same time 4 Active Drug Shafer Unilet Lancets 33G misc 4 Active latanoprost (Xalatan) 0.005 % ophthalmic solution Active levoFLOXacin (Levaquin) 750 MG tablet Take 1 tablet by mouth Daily 4 Active levothyroxine (Synthroid, Levoxyl) 125 MCG tablet 1 (one) time each day at the same time Active omega-3 (Fish Oil) 1000 MG capsule 3 capsules 1 (one) time each day at the same time Active simvastatin (Zocor) 40 MG tablet 1 (one) time each day at the same time Active fluocinonide (Lidex) 0.05 % ointmentIndicat ions:Other atopic dermatitis Apply to affected areas up to twice a day when flared, do not use on the face, groin, or underarms 60 g 3 4 Active fluocinonide (Lidex) 0.05 % ointmentIndicat ions:Other atopic dermatitis Apply to affected areas, up to twice a day when flared, do not use one the face, groin, or underarms, 30 day supply 60 g 11 5 Active terbinafine (LamISIL) 250 MG tabletIndicatio ns:Onychomycosi s Take 1 tablet, by mouth, once daily, 90 days 90 tablet 5 Active carvedilol (Coreg) 6.25 MG tablet Take 6.25 mg by mouth in the morning and 6.25 mg in the evening. Take with meals. 5 Active Active Problems No known active problems Encounters Date Type Department Care Team Description 11/04/2024 10:45 AM EDT Office Visit [facility] [address] [place] [address] Alfredo Elias DPM Nail dystrophy (Primary Dx); Pain in toes of both feet 11/04/2024 Bamboo flowsheet [facility] [address] [place] [address] Alfredo Elias DPM 11/04/2024 Travel 10/21/2024 8:30 AM EDT Office Visit [facility] [address] [place] [address] Alfredo Elias DPM Onychomycosis (Primary Dx); Ingrown toenail; Pain in toes of both feet; Neuropathy 10/21/2024 Bamboo flowsheet [facility] [address] [place] [address] Alfredo Elias DPM 10/21/2024 Travel from Last 3 Months Social History Tobacco Use Types Packs/Day Years Used Date Smoking Tobacco: Unknown Tobacco Cessation:Counseling Given: Not Answered Comments Unknown Sex and Gender Information Value Date Recorded Sex Assigned at Not on file Legal Sex Female 6:35 PM EDT Gender Identity Not on file Sexual Orientation Not on file Last Filed Vital Signs Vital Sign Reading Time Taken Comments Blood Pressure - - Pulse - - Temperature - - Respiratory Rate - - Oxygen Saturation - - Inhaled Oxygen Concentration - - Weight - - Height 165.1 cm (5' 5 ) 08/23/2022 12:00 PM EDT Body Mass Index - - Plan of Treatment Upcoming Encounters Date Type Department Care Team (Late st Contact Info) Description 10/13/2025 2:20 PM EDT Office Visit [facility] [address] [place] [address] Bonnie Salmon APRN-CONTINUOUS MINER [address] [place] [address] Health Maintenance Due Date Last Done Comments CT Colonography 1955 Colonoscopy 1955 Colorectal Cancer Screening 1955 FIT-DNA 1955 FIT 1955 FOBT 1955 Sigmoidoscopy 1955 Mammogram 1995 Influenza Vaccine (#1) 2025 4, 04/18/2023, 02/19/2022, Additional history exists Pneumococcal Vaccine: 65+ Years Completed 5, 05/29/2016 Insurance MEDICARE [employer] Care Teams Completion Supervisor Relationship Specialty Start Date End Date Sarbjit Pink MD [address] [place] [address] PCP - General Family Medicine 10/14/24
--- OUTSIDE RECORDS SUMMARY | 2025-01-17 15:58 | XMS_ITS | Clinical Summary ---
Author Organization [facility] Address [id number] [address] [place] [address] Care Team Providers Care Brazer Resistance Name Role Phone Unavailable Primary Care Provider Unavailabl e Social History Tobacco Use Types Packs/Day Years Used Date Smoking Tobacco: Never Assessed Childcare Answer Date Recorded Childcare Unknown 11/04/2018 Employment Answer Date Recorded Employment Unknown 11/04/2018 Comments Unknown Sex and Gender Information Value Date Recorded Sex Assigned at Not on file Legal Sex Female 4:20 PM EST Gender Identity Not on file Sexual Orientation Not on file Plan of Treatment Not on file Medical Devices Not on file
--- OUTSIDE RECORDS SUMMARY | 2025-01-17 16:00 | XMS_ITS | CCD ---
Author Organization [facility] Care Team Providers Care Seconds Handler Name Role Phone SHAD Webb, DR BLANCHARD Primary Care Unavailable SHAD ., DR BLANCHARD Admitting Unavailable SHAD ., DR BLANCHARD Attending Unavailable HOY ., DR BLANCHARD Consulting Unavailable ASHWINI, DR BONG Slater Consulting Unavailable SHAD ., DR BLANCHARD Primary Care Unavailable HOY ., DR BLANCHARD Admitting Unavailable HOY ., DR BLANCHARD Attending Unavailable HOY ., DR BLANCHARD Consulting Unavailable Unavailable Primary Care Provider UnavailSanto Rogers MD Primary Care Provider [phone] BONNIE SALMON Attending Unavailable ED ELIAS Attending BONNIE Banuelos Referring Unavailable ED ELIAS Attending BONNIE Banuelos Attending Unavailable Allergies Allergy Classification Reported Allergen(s) Allergy Type Date of Onset Reaction(s) Facility (1 source) Morphine Drug Allergy 5 [facility] (9 sources) Morphine Drug Allergy 4 GI intolerance [facility] (9 sources) Sulfonamides (Antibiotic) Drug Allergy 4 [facility] Medications Current Medications Medication Drug Class(es) Dates Sig (Normalized) Sig (Original) ALPRAZolam 0.5 mg oral tablet (9 sources) Benzodiazepine ALPRAZolam (Xana x) 0.5 MG tablet Take 0.5 mg by mouth as needed in the morning and 0.5 mg as needed in the evening. Active Blood Glucose Monitoring Suppl (True Metrix Meter) w/Device kit (9 sources) Start: 09-12-2023 Blood Glucose Monitoring Suppl (True Metrix Meter) w/Device kit 09/12/2023 Active Start: 09-12-2023 Blood Glucose Monitoring Suppl (True Metrix Meter) w/Device kit USE DIRECTED DAILY 09/12/2023 Active carvedilol 6.25 mg oral tablet (2 sources) alpha-Adrenergic Katlin, beta-Adrenergic Katlin Start: 11-01-2024 take 1 tablet by mouth in the morning carvedilol (Coreg) 6.25 MG tablet Take 6.25 mg by mouth in the morning and 6.25 mg in the evening. Take with meals. 11/01/2024 Active cholecalciferol 0.05 mg oral capsule (9 sources) Vitamin D Start: 09-12-2023 cholecalciferol (Vitamin D-3) 50 MCG (1999 UT) capsule 1 capsule 1 (one) time each day at the same time 09/12/2023 Active docosahexaenoic acid 120 mg / eicosapentaenoic acid 180 mg oral capsule (9 sources) omega-3 (Fish Oi l) 1000 MG capsule 3 capsules 1 (one) time each day at the same time Active dorzolamide 20 mg/ml / timolol 5 mg/ml ophthalmic solution (9 sources) Carbonic Anhydrase Inhibitor, beta-Adrenergic Katlin dorzolamide-timolol (Cosopt) 2-0.5 % ophthalmic solution Active dorzolamide-patria lol (Cosopt) 2-0.5 % ophthalmic solution instill 1 DROP IN BOTH EYES TWICE DAILY Ophthalmic for 50 Days Active fluocinonide 0.0005 mg/mg topical ointment (20 sources) Corticosteroid Start: 11-24-2023 End: 10-13-2024 fluocinonide (Lidex) 0.05 % ointment Indications: Other atopic dermatitis Apply to affected areas, up to twice a day when flared, do not use one the face, groin, or underarms, 30 day supply 60 g 11 10/13/2024 Active 30 actuat fluticasone furoate 0.1 mg/actuat / vilanterol 0.025 mg/actuat dry powder inhaler (9 sources) Corticosteroid, beta2-Adrenergic Agonist Breo Ellipta 100-25 MCG/ACT aerosol powder 1 puff 1 (one) time each day at the same time Active latanoprost 0.05 mg/ml ophthalmic solution (9 sources) Prostaglandin Analog latanoprost (Xalatan) 0.005 % ophthalmic solution Active levoFLOXacin 750 mg oral tablet (9 sources) Quinolone Antimicrobial Start: 09-08-2023 take 1 tablet by mouth once daily levoFLOXacin (Levaquin) 750 MG tablet Take 1 tablet by mouth Daily 09/08/2023 Active levothyroxine sodium 0.125 mg oral tablet (9 sources) l-Thyroxine levothyroxine (Synthroid, Levoxyl) 125 MCG tablet 1 (one) time each day at the same time Active simvastatin 40 mg oral tablet (9 sources) HMG-CoA Reductase Inhibitor simvastatin (Zocor) 40 MG tablet 1 (one) time each day at the same time Active terbinafine 250 mg oral tablet (8 sources) Allylamine Antifungal Start: 10-13-2024 take 1 tablet by mouth once daily terbinafine (LamISIL) 250 MG tablet Indications: Onychomycosis Take 1 tablet, by mouth, once daily, 90 days 90 tablet 10/13/2024 Active Problems Active Problems Problem Classification Problem Date Documented Da te Episodic/Chronic Allergic reactions (2 sources) Atopic dermatitis; Translations: [Other atopic dermatitis] 10-13-2024 Chronic Disorders of lipid metabolism (4 sources) Pure hyperglyceridemia; Translations: [PURE HYPERGLYCERIDEMIA] Onset: 03-18-2022 Chronic Mycoses (6 sources) Onychomycosis; Translations: [Tinea unguium] 10-13-2024 Episodic Nutritional deficiencies (1 source) Vitamin D deficiency, unspecified; Translations: [VITAMIN D DEFICIENCY UNSPECIFIED] Onset: 03-20-2022 Chronic Other connective tissue disease (4 sources) Pain of toes of bilateral feet; Translations: [Pain in right toe(s)] 10-21-2024 Episodic Other nervous system disorders (2 sources) Neuropathy; Translations: [Polyneuropathy, unspecified] 10-21-2024 Chronic Other skin disorders (2 sources) Inflamed seborrheic keratosis; Translations: [Inflamed seborrheic keratosis] 10-13-2024 Episodic Other skin disorders (2 sources) Ingrowing toenail; Translations: [Ingrowing nail] 10-21-2024 Episodic Other skin disorders (2 sources) Dystrophia unguium; Translations: [Nail dystrophy] 11-04-2024 Episodic Thyroid disorders (1 source) Thyrotoxicosis, unspecified without [...] 03-20-2022 Episodic Other aftercare (1 source) Other retirement (current) drug therapy; Translations: [OTH [facility] CURRENT DRUG THERAPY] Onset: 03-20-2022 Episodic Other non-traumatic joint disorders (1 source) Pain in unspecified joint; Translations: [PAIN IN UNSPECIFIED JOINT] Onset: 03-20-2022 Episodic Results Test Name Value Interpretation Reference Range Facility No Panel Informationon 10-13 [facility] S[facility]EN 3D BARRY CADon 10-09-2022 MG MAMM SCREEN 3D BARRY CAD Patient: KATHARINE PRUITT Exam Date: 10/09/2022 : 1955 Gender:F Ordering : DR SANTO PINK . Admission #: [id number] Family : Order #: [id number] CLICK HERE TO VIEW EXAM RADIOLOGY REPORT [...] breast cancer at age 50. LOCATION: [facility] BREAST COMPOSITION: Almost entirely fatty. FINDINGS: [...] M.D. on 10/09/2022 at 12:21 Normal [facility] CBC AUTO DIFFon 03-18-2022 BASO # 0.1 103/ul Normal 0.0-0.1 [facility] Comment on above: Performed By: #### C BC #### [facility] [address] [address] [address] Néstor Serna Basophils/100 WBC (Bld) 0.6 % Normal 0.2-2.0 [facility] Comment on above: Performed By: #### C BC #### [facility] [address] [address] [address] Néstor Serna EO # 0.2 103/ul Normal 0.0-0.7 [facility] Comment on above: Performed By: #### C BC #### [facility] [address] [address] [address] Néstor Serna Eosinophils/100 WBC (Bld) 1.9 % Normal 0.9-7.0 [facility] Comment on above: Performed By: #### C BC #### [facility] [address] [address] [address] Néstor Serna Erythrocyte distribution width (RBC) [Ratio] 12.6 % Normal 11.0-15.0 [facility] Comment on above: Performed By: #### C BC #### [facility] [address] [address] [address] Néstor Serna Hematocrit (Bld) [Volume fraction] 45.2 % Normal 36.0-48.0 [facility] Comment on above: Performed By: #### C BC #### [facility] [address] [address] [address] Néstor Serna Hemoglobin (Bld) [Mass/Vol] 14.9 g/dL Normal 12.0-16.0 [facility] Comment on above: Performed By: #### C BC #### [facility] [address] [address] [address] Néstor Serna IG # 0.02 10e3/ul Normal 0.00-0.03 [facility] Comment on above: Performed By: #### C BC #### [facility] [address] [place] [address] Dr. Néstor Serna IG % 0.3 % Normal 0.0-0.5 [facility] Comment on above: Performed By: #### C BC #### [facility] [address] [place] [address] Dr. Néstor Serna LYMPH # 3.3 103/ul Normal 1.2-3.8 [facility] Comment on above: Performed By: #### C BC #### [facility] [address] [place] [address] Dr. Néstor Serna Lymphocytes/100 WBC (Bld) 41.6 % Normal 20.5-60.0 [facility] Comment on above: Performed By: #### C BC #### [facility] [address] [place] [address] Dr. Néstor Serna MANUAL DIFF REQ NO Normal [facility] Comment on above: Performed By: #### C BC #### [facility] [address] [place] [address] Dr. Néstor Serna MCH (RBC) [Entitic mass] 30.7 pg Normal 26.7-34.0 [facility] Comment on above: Performed By: #### C BC #### [facility] [address] [place] [address] Dr. Néstor Serna MCHC (RBC) [Mass/Vol] 33.0 g/dL Normal 29.9-35.2 [facility] Comment on above: Performed By: #### C BC #### [facility] [address] [place] [address] Dr. Néstor Serna MCV (RBC) [Entitic vol] 93.2 fL Normal 81.0-99.0 [facility] Comment on above: Performed By: #### C BC #### [facility] [address] [place] [address] Dr. Néstor Srena MONO # 0.5 103/ul Normal 0.3-0.8 [facility] Comment on above: Performed By: #### C BC #### [facility] [address] [place] [address] Dr. Néstor Serna Monocytes/100 WBC (Bld) 6.5 % Normal 1.7-12.0 [facility] Comment on above: Performed By: #### C BC #### [facility] [address] [place] [address] Dr. Néstor Serna NEUT # 3.9 103/ul Normal 1.4-6.5 [facility] Comment on above: Performed By: #### C BC #### [facility] [address] [place] [address] Dr. Néstor Serna Neutrophils/100 WBC (Bld) 49.1 % Normal 43.0-75.0 [facility] Comment on above: Performed By: #### C BC #### [facility] [address] [place] [address] Dr. Néstor Serna Platelet mean volume (Bld) [Entitic vol] 10.4 fL Normal 9.5-13.5 [facility] Comment on above: Performed By: #### C BC #### [facility] [address] [place] [address] Dr. Néstor Serna PLT 212 103/ul Normal 150-450 [facility] Comment on above: Performed By: #### C BC #### [facility] [address] [place] [address] Dr. Néstor Serna RBC 4.85 106/ul Normal 4.20-5.40 [facility] Comment on above: Performed By: #### C BC #### [facility] [address] [place] [address] Dr. Néstor Serna WBC 7.8 103/ul Normal 4.0-11.0 [facility] Comment on above: Performed By: #### C BC #### [facility] [address] [place] [address] Dr. Néstor Serna FREE T3on 03-18-2022 FREE T3 2.36 pg/mlL Normal 2.18-3.98 [facility] Comment on above: Performed By: #### T 4, TSH, CMP, FT3, LIPID #### [facility] [address] [address] [address] Néstor Serna GLYCOHEMOGLOBIN A1Con 2021 ADA RECOMMENDATION SEE BELOW Normal [facility] Comment on above: Result Comment: ADA RECOMMENDED LIMIT 4.0 - 6.0 ADA THERAPEUTIC TARGET < 7.0 ACTION SUGGESTED > 7.0 Performed By: #### A 1C #### [facility] [address] [address] [address] Néstor Serna Glucose [Mass/Vol] 128 mg/dL Normal [facility] Comment on above: Performed By: #### A 1C #### [facility] [address] [address] [address] Néstor Serna HbA1c (Bld) [Mass fraction] 6.1 % Normal 4.5-6.2 [facility] Comment on above: Performed By: #### A 1C #### [facility] [address] [place] [address] Dr. Néstor Serna LIPID PROFILEon 03-18-2022 CHOL-HDL RATIO NORM SEE BELOW Normal [facility] Comment on above: Result Comment: 3.3 - 4.4 LOW RISK 4.4 - 7.1 AVERAGE RISK 7.1 - 11.0 MODERATE RISK >11.0 HIGH RISK Performed By: #### T 4, TSH, CMP, FT3, LIPID #### [facility] [address] [address] [address] Néstor Serna Cholesterol [Mass/Vol] 162 mg/dL Normal <=200 [facility] Comment on above: Performed By: #### T 4, TSH, CMP, FT3, LIPID #### [facility] [address] [address] [address] Néstor Serna Cholesterol in HDL [Mass/Vol] 49 mg/dL Normal 40-60 [facility] Comment on above: Performed By: #### T 4, TSH, CMP, FT3, LIPID #### [facility] [address] [address] [address] Néstor Serna Cholesterol in LDL [Mass/Vol] 70.0 mg/dL Normal [facility] Comment on above: Performed By: #### T 4, TSH, CMP, FT3, LIPID #### [facility] [address] [address] [address] Néstor Serna Cholesterol.total/Cho lesterol in HDL [Mass ratio] 3.3 {ratio} Normal [facility] Comment on above: Performed By: #### T 4, TSH, CMP, FT3, LIPID #### [facility] [address] [address] [address] Néstor Serna HDL NORMAL > or = 60 mg/dl - LOW CARDIOVASCULAR RISK <40 mg/dl - HIGH CARDIOVASCULAR RISK Normal [facility] Comment on above: Performed By: #### T 4, TSH, CMP, FT3, LIPID #### [facility] [address] [address] [address] Néstor Serna LDL CALC NORMAL SEE BELOW Normal [facility] Comment on above: Result Comment: <100 mg/dl OPTIMAL 100 - 129 mg/dl NEAR OR ABOVE OPTIMAL 130 - 159 mg/dl BORDERLINE HIGH 160 - 189 mg/dl HIGH >190 mg/dl VERY HIGH Performed By: #### T 4, TSH, CMP, FT3, LIPID #### [facility] [address] [address] [address] Néstor Serna Triglyceride [Mass/Vol] 215 mg/dL Critically high <=150 [facility] Comment on above: Performed By: #### T 4, TSH, CMP, FT3, LIPID #### [facility] [address] [address] [address] Néstor Serna VLDL CALC 43.0 mg/dL Normal [facility] Comment on above: Performed By: #### T 4, TSH, CMP, FT3, LIPID #### [facility] [address] [address] [address] Néstor Serna PROF 14(COMP METB)on 022 Albumin [Mass/Vol] 3.4 g/dL Normal 3.4-5.0 [facility] Comment on above: Performed By: #### T 4, TSH, CMP, FT3, LIPID #### [facility] [address] [place] [address] Dr. Néstor Serna Albumin/Globulin [Mass ratio] 0.9 {ratio} Normal [facility] Comment on above: Performed By: #### T 4, TSH, CMP, FT3, LIPID #### [facility] [address] [address] [address] Néstor Serna ALP [Catalytic activity/Vol] 126 U/L Critically high 46-116 [facility] Comment on above: Performed By: #### T 4, TSH, CMP, FT3, LIPID #### [facility] [address] [address] [address] Néstor Serna ALT [Catalytic activity/Vol] 59 U/L Normal 14-59 [facility] Comment on above: Performed By: #### T 4, TSH, CMP, FT3, LIPID #### [facility] [address] [place] [address] Dr. Néstor Serna Anion gap [Moles/Vol] 9.3 mmol/L Normal [facility] Comment on above: Performed By: #### T 4, TSH, CMP, FT3, LIPID #### [facility] [address] [place] [address] Dr. Néstor Serna AST [Catalytic activity/Vol] 34 U/L Normal 15-37 [facility] Comment on above: Performed By: #### T 4, TSH, CMP, FT3, LIPID #### [facility] [address] [place] [address] Dr. Néstor Serna Bilirubin [Mass/Vol] 0.4 mg/dL Normal 0.2-1.0 [facility] Comment on above: Performed By: #### T 4, TSH, CMP, FT3, LIPID #### [facility] [address] [place] [address] Dr. Néstor Serna Calcium [Mass/Vol] 8.8 mg/dL Normal 8.5-10.1 [facility] Comment on above: Performed By: #### T 4, TSH, CMP, FT3, LIPID #### [facility] [address] [place] [address] Dr. Néstor Serna Chloride [Moles/Vol] 105 mmol/L Normal 98-107 [facility] Comment on above: Performed By: #### T 4, TSH, CMP, FT3, LIPID #### [facility] [address] [address] [address] Néstor Serna CO2 [Moles/Vol] 30.7 mmol/L Normal 21.0-32.0 [facility] Comment on above: Performed By: #### T 4, TSH, CMP, FT3, LIPID #### [facility] [address] [place] [address] Dr. Néstor Serna Creatinine [Mass/Vol] 0.64 mg/dL Normal 0.55-1.02 [facility] Comment on above: Performed By: #### T 4, TSH, CMP, FT3, LIPID #### [facility] [address] [place] [address] Dr. Néstor Serna EGFR-AF VINCENTIAN >60 Normal >=60 [facility] Comment on above: Performed By: #### T 4, TSH, CMP, FT3, LIPID #### [facility] [address] [place] [address] Dr. Néstor Serna EGFR-NON AF VINCENTIAN >60 Normal >=60 [facility] Comment on above: Performed By: #### T 4, TSH, CMP, FT3, LIPID #### [facility] [address] [place] [address] Dr. Néstor Serna Globulin (S) [Mass/Vol] 3.6 g/dL Normal [facility] Comment on above: Performed By: #### T 4, TSH, CMP, FT3, LIPID #### [facility] [address] [place] [address] Dr. Néstor Serna Glucose [Mass/Vol] 103 mg/dL Normal 74-106 [facility] Comment on above: Performed By: #### T 4, TSH, CMP, FT3, LIPID #### [facility] [address] [place] [address] Dr. Néstor Serna Potassium [Moles/Vol] 4.0 mmol/L Normal 3.5-5.1 [facility] Comment on above: Performed By: #### T 4, TSH, CMP, FT3, LIPID #### [facility] [address] [place] [address] Dr. Néstor Serna Protein [Mass/Vol] 7.0 g/dL Normal 6.4-8.2 [facility] Comment on above: Performed By: #### T 4, TSH, CMP, FT3, LIPID #### [facility] [address] [place] [address] Dr. Néstor Serna Sodium [Moles/Vol] 141 mmol/L Normal 136-145 [facility] Comment on above: Performed By: #### T 4, TSH, CMP, FT3, LIPID #### [facility] [address] [place] [address] Dr. Néstor Serna Urea nitrogen [Mass/Vol] 15.0 mg/dL Normal 7.0-18.0 [facility] Comment on above: Performed By: #### T 4, TSH, CMP, FT3, LIPID #### [facility] [address] [place] [address] Dr. Néstor Serna Urea nitrogen/Creatinine [Mass ratio] 23.4 mg/mg Normal [facility] Comment on above: Performed By: #### T 4, TSH, CMP, FT3, LIPID #### [facility] [address] [place] [address] Dr. Néstor Serna T4on 03-18-2022 T4 [Mass/Vol] 13.80 ug/dL Normal 4.80-13.90 [facility] Comment on above: Performed By: #### T 4, TSH, CMP, FT3, LIPID #### [facility] [address] [place] [address] Dr. Néstor Serna TSHon 03-18-2022 TSH 0.123 uIU/mL Critically low 0.358-3.[address] [facility] Comment on above: Performed By: #### T 4, TSH, CMP, FT3, LIPID #### [facility] [address] [place] [address] Dr. Néstor Serna VITAMIN D 25 OHon 03-18-2022 VIT D 25-OH 29.3 ng/mL Normal [facility] Comment on above: Performed By: #### V ITAD #### [facility] [address] [address] [address] Néstor Serna VIT D RANGES SEE BELOW Normal [facility] Comment on above: Result Comment: <20 ng/mL Vit D deficient 20 - <30 ng/mL Vit D insufficient 30 - 100 ng/mL Vit D sufficient >100 ng/mL Potential Toxicity Performed By: #### V ITAD #### [facility] [address] [address] [address] Néstor Serna Encounters Encounter Date Encounter Type Care Provider Facility Start: 11-04-2024 End: 11-04-2024 Bamboo flowsheet Ed Elias DPM Work Phone: [facility] Start: 11-04-2024 End: 11-04-2024 Bamboo flowsheet Ed Elias DPM Work Phone: [facility] Start: 11-04-2024 End: 11-04-2024 ambulatory ED ELIAS Not Available Start: 11-04-2024 End: 11-04-2024 Office outpatient visit 25 minutes Ed Elias DPM Work Phone: [facility] Comment on above: Nail dystrophy (Prim jovany Dx); Pain in toes of both feet Start: 10-21-2024 End: 10-21-2024 Bamboo flowsheet Ed Elias DPM Work Phone: [facility] Start: 10-21-2024 End: 10-21-2024 Bamboo flowsheet Ed Elias DPM Work Phone: [facility] Start: 10-21-2024 End: 10-21-2024 Office outpatient new 30 minutes Ed Elias DPM Work Phone: [facility] Comment on above: Onychomycosis (Prima ry Dx); Ingrown toenail; Pain in toes of both feet; Neuropathy Start: 10-21-2024 End: 10-21-2024 ambulatory ED ELIAS Not Available Start: 10-13-2024 End: 10-13-2024 Office outpatient visit 15 minutes Bonnie Salmon [employer] Work Phone: [facility] Comment on above: Other atopic dermati tis (Primary Dx); Onychomycosis; Inflamed seborrheic keratosis Start: 10-13-2024 End: 10-13-2024 ambulatory BONNIE SALMON Not Available Start: 10-13-2024 End: 10-13-2024 Bamboo flowsheet Bonnie Thapa Felter [employer] Work Phone: [facility] Start: 10-13-2024 End: 10-13-2024 Bamboo flowsheet Bonnie Thapa Felter [employer] Work Phone: [facility] Start: 11-24-2023 End: 11-24-2023 ambulatory BONNIE Elier EVELYNE Not Available Start: 10-09-2022 End: 10-10-[address] SANTO PINK . Facility: Start: 03-18-2022 End: 03-19-[address] SANTO PINK . Facility: Procedures Date Procedure Procedure Detail Performing Clinician Start: 10-13-2024 CRYOTHERAPY SKIN LESION Bonnie Salmon [employer] Work Phone: Plan of Treatment Date Care Activity Detail Author Start: 10-13-2025 End: 10-13-2025 Patient encounter procedure 10/13/2025 2:20 PM EDT Office Visit [facility] [address] [place] [address] Bonnie Salmon, [employer] [address] [place] [address] [facility] Start: 11-29-2024 End: 11-29-2024 Patient encounter procedure 11/29/2024 11:35 AM EDT Office Visit [facility] [address] [place] [address] Bonnie Salmon, [employer] [address] [place] [address] [facility] Start: 11-04-2024 End: 11-04-2024 Patient encounter procedure 11/04/2024 10:45 AM EDT Office Visit [facility] [address] [place] [address] Ed Elias DPM [address] [place] [address] [facility] Start: 10-21-2024 End: 10-21-2024 Patient encounter procedure 10/21/2024 8:30 AM EDT Office Visit [facility] [address] [place] [address] Ed Elias DPM [address] [place] [address] Arrived [facility] Comment on above: Arrived Start: 10-13-2024 End: 10-13-2024 Patient encounter procedure 10/13/2024 3:40 PM EDT Office Visit [facility] [address] [place] [address] Bonnie Salmon [employer] [address] [place] [address] Arrived [facility] Comment on above: Arrived Start: 1995 Screening for malign ant neoplasm of breast Mammogram [facility] Start: 1955 Screening for malign ant neoplasm of colon [facility] Payers Date Payer Category Payer Private Health Insurance [id number] 2020 Private Health Insurance I [id number] 2019 Medicare MEDICARE [id number] 5 1959 Medicare [id number] 1959 Private Health Insurance CVL [id number] 1955 Unknown [id number] 1955 Unknown [id number] 1955 Unknown [id number] .[id number] 1955 Unknown [id number] .[id number] 1955 Unknown [id number] .[id number] 1955 Unknown [id number] Social History Date Type Detail Facility Start: 11-24-2023 [facility] Start: 1955 Sex assigned at Not on file [facility] Gender identity Not [facility] file [facility] Medical Equipment Procedure Code Equipment Code Equipment Origin al Text Equipment Identifier Dates Start: 09-10-2023 History of Present illness Narrative 11-04-2024 Ed Elias DPM - 11/04/2024 10:45 AM EDT Note Date & Type Note Facility 11-04-2024 History of Presen t illness Narrative [facility] CC: Fungal toenail Concern HPI: This is a 69 y.o. female with PMH indicated below who presents for pathology review from excisional nail biopsy. She has been taking terbinafine from PCP for what she thought was nail fungus without improvement. Denies any other pedal complaints. PCP: Santo Pink MD No past medical history on file. Current Outpatient Medications Medication Sig Dispense Refill ALPRAZolam (Xanax) 0.5 MG tablet Take 0.5 mg by mouth as needed in the morning and 0.5 mg as needed in the evening. Blood Glucose Monitoring Suppl (True Metrix Meter) w/Device kit Breo Ellipta 100-25 MCG/ACT aerosol powder 1 puff 1 (one) time each day at the same time carvedilol (Coreg) 6.25 MG tablet Take 6.25 mg by mouth in the morning and 6.25 mg in the evening. Take with meals. cholecalciferol (Vitamin D-3) 50 MCG (2000 UT) capsule 1 capsule 1 (one) time each day at the same time dorzolamide-timolol (Cosopt) 2-0.5 % ophthalmic solution Drug [place] Unilet Lancets 33G misc fluocinonide (Lidex) 0.05 % ointment Apply to affected areas up to twice a day when flared, do not use on the face, groin, or underarms 60 g 3 fluocinonide (Lidex) 0.05 % ointment Apply to affected areas, up to twice a day when flared, do not use one the face, groin, or underarms, 30 day supply 60 g 11 Glucose Meter Test test strip 1 (one) time each day at the same time latanoprost (Xalatan) 0.005 % ophthalmic solution levoFLOXacin (Levaquin) 750 MG tablet Take 1 tablet by mouth Daily levothyroxine (Synthroid, Levoxyl) 125 MCG tablet 1 (one) time each day at the same time omega-3 (Fish Oil) 1000 MG capsule 3 capsules 1 (one) time each day at the same time simvastatin (Zocor) 40 MG tablet 1 (one) time each day at the same time terbinafine (LamISIL) 250 MG tablet Take 1 tablet, by mouth, once daily, 90 days 90 tablet 0 No current facility-administered medications for this visit. Allergies Allergen Reactions Morphine GI intolerance Sulfa Antibiotics Other Reaction(s): face turned red Physical Exam: There were no vitals taken for this visit. On General Observation: Patient is a pleasant, cooperative, well developed 69 y.o. adult female. The patient is alert and oriented to time, place and person. Patient has normal affect and mood. Vascular: DP and PT pulses are palpable. CFT less than 3 seconds to all digits. Skin temperature is warm to warm from proximal to distal bilateral. Hair growth is not noted. Mild pitting edema noted. No varicosities noted. Neuro: Light touch intact bilateral. Protective sensation diminished at all pedal sites via [place] Nishant 5.07 monofilament b/l. Dermatological: Skin appears well hydrated and supple. Good color, texture, turgor. Toenails 1,2,3,4,5 bilateral are discolored, elongated, mildly thickened without subungual debris. Bilateral 4th digit with pincher type nail. IGTN to bilateral 4th digit without gross sign of infection. Webspaces 1-4 are clean, dry, intact bilateral. No rashes, subcutaneous nodules, or open lesions noted. Musculoskeletal/Orthopaedic: General foot morphology: Rectus. No gross digital deformity noted. Pain to nails 1-5 B/L. PATHOLOGY: 10/21/24 PAS fails to demonstrate fungal component Dense ortho keratotic consistent with chronic microtrauma Assessment: Encounter Diagnosis Name Primary? Nail dystrophy Yes Plan: A comprehensive history and physical examination were preformed. The patient was educated on clinical and radiographic findings, diagnosis and treatment plans. Patient state that she understands all that has been explained and all questions were answered to her apparent satisfaction. Pathology report reviewed with no fungal component noted. 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 We discussed she should discontinue terbinafine RX that other provider gave her as she does not have fungus. In regards to nails dystrophy we discussed Obtain thick nail file, file top of nail before applying the following Obtain nail nipper, can usually be found in store in nail care aisle or online OPTIONS: Epsom salt soak with warm water for 20 minutes, this will help soften nail and then trim with nail nipper Vicks Vapor Rub, file top surface of nail then apply to nail daily to help soften nail and make more manageable Urea Nail Gel 47%, on amazon, file top of nail then apply like [place]. Will help shed the layers of the thick nail RTC: PRN Ed Elias DPM Face to face time w/ pt was at least 25 minutes w/ at least 50% of the time spent reviewing the results of the recent pathology report counseling the pt on treatment options and coordinating their care. documented in this encounter [facility] Instructions 11-04-2024 Patient Instructions Note Date & Type Note Facility 11-04-2024 Instructions Ed Elias DPM - 11/04/2024 10:45 AM EDT Obtain thick nail file, file top of nail before applying the following Obtain nail nipper, can usually be found in store in nail care aisle or online OPTIONS: Epsom salt soak with warm water for 20 minutes, this will help soften nail and then trim with nail nipper Vicks Vapor Rub, file top surface of nail then apply to nail daily to help soften nail and make more manageable Urea Nail Gel 47%, on amazon, file top of nail then apply like [place]. Will help shed the layers of the thick nail documented in this encounter [facility] History of Present illness Narrative 10-21-2024 Ed Elias DPM - 10/21/2024 8:30 AM EDT Note Date & Type Note Facility 10-21-2024 History of Presen t illness Narrative [facility] CC: Fungal toenail Concern HPI: This is a 69 y.o. female with PMH indicated below who presents for fungal nails concern, relates she noticed thickening of her nails. States she went to dermatology who started her on terbinafine a few weeks ago. Relates no sample of her nail was sent to confirm fungal pathology. Does admit to trauma of bilateral foot causing deformed nails . 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 Patient states toenails are thickened and discolored. Patient admits to pain in shoegear. Patient is unable to cut them. Denies any other pedal complaints. PCP: Santo Pink MD No past medical history on file. Current Outpatient Medications Medication Sig Dispense Refill ALPRAZolam (Xanax) 0.5 MG tablet Take 0.5 mg by mouth as needed in the morning and 0.5 mg as needed in the evening. Blood Glucose Monitoring Suppl (True Metrix Meter) w/Device kit Breo Ellipta 100-25 MCG/ACT aerosol powder 1 puff 1 (one) time each day at the same time cholecalciferol (Vitamin D-3) 50 MCG (1999 UT) capsule 1 capsule 1 (one) time each day at the same time dorzolamide-timolol (Cosopt) 2-0.5 % ophthalmic solution Drug [place] Unilet Lancets 33G misc fluocinonide (Lidex) 0.05 % ointment Apply to affected areas up to twice a day when flared, do not use on the face, groin, or underarms 60 g 3 fluocinonide (Lidex) 0.05 % ointment Apply to affected areas, up to twice a day when flared, do not use one the face, groin, or underarms, 30 day supply 60 g 11 Glucose Meter Test test strip 1 (one) time each day at the same time latanoprost (Xalatan) 0.005 % ophthalmic solution levoFLOXacin (Levaquin) 750 MG tablet Take 1 tablet by mouth Daily levothyroxine (Synthroid, Levoxyl) 125 MCG tablet 1 (one) time each day at the same time omega-3 (Fish Oil) 1000 MG capsule 3 capsules 1 (one) time each day at the same time simvastatin (Zocor) 40 MG tablet 1 (one) time each day at the same time terbinafine (LamISIL) 250 MG tablet Take 1 tablet, by mouth, once daily, 90 days 90 tablet 0 No current facility-administered medications for this visit. Allergies Allergen Reactions Morphine GI intolerance Sulfa Antibiotics Other Reaction(s): face turned red No past surgical history on file. No family history on file. Social History Tobacco Use Smoking status: Unknown Review of Systems: GENERAL: No weight loss, malaise or fevers. HEENT: Negative for frequent or significant headaches, vision changes, nose bleeds RESPIRATORY: Negative for cough, wheezing or shortness of breath. CARDIOVASCULAR: Negative for chest pain, leg swelling or palpitations. GI: Negative for abdominal discomfort, nausea, vomiting MUSCULOSKELETAL: +Back Pain, B/L Foot Pain SKIN: +Thick Nails NEURO: + numbess, tingling or burning in feet Physical Exam: There were no vitals taken for this visit. On General Observation: Patient is a pleasant, cooperative, well developed 69 y.o. adult female. The patient is alert and oriented to time, place and person. Patient has normal affect and mood. Vascular: DP and PT pulses are palpable. CFT less than 3 seconds to all digits. Skin temperature is warm to warm from proximal to distal bilateral. Hair growth is not noted. Mild pitting edema noted. No varicosities noted. Neuro: Light touch intact bilateral. Protective sensation diminished at all pedal sites via [place]ishant 5.07 monofilament b/l. Dermatological: Skin appears well hydrated and supple. Good color, texture, turgor. Toenails 1,2,3,4,5 bilateral are discolored, elongated, mildly thickened without subungual debris. Bilateral 4th digit with pincher type nail. IGTN to bilateral 4th digit without gross sign of infection. Webspaces 1-4 are clean, dry, intact bilateral. No rashes, subcutaneous nodules, or open lesions noted. Musculoskeletal/Orthopaedic: General foot morphology: Rectus. No gross digital deformity noted. Pain to nails 1-5 B/L. Assessment: Encounter Diagnoses Name Primary? Onychomycosis Yes Ingrown toenail Pain in toes of both feet Neuropathy Plan: A comprehensive history and physical examination were preformed. The patient was educated on clinical and radiographic findings, diagnosis and treatment plans. Patient state that she understands all that has been explained and all questions were answered to her apparent satisfaction. Nails 1-5 B/L were debrided in length and thickness by manual and mechanical means. Slant back performed to bilateral 4th digit nail without incident. Monitor for sign of recurrence or infection. Excisional nail [facility] right hallux [facility]. Advised patient on continued proper foot care including daily monitoring of their feet for any new complaints or concerns that may arise. RTC: 2 weeks for pathology review Ed Elias DPM documented in this encounter [facility] History of Present illness Narrative 10-13-2024 Bonnie Salmon, [employer]OR - 10/13/2024 3:40 PM EDT Note Date & Type Note Facility 10-13-2024 History of Presen t illness Narrative Other Problem: discoloration Location: toenails Duration: 4 months Treatments tried/failed: antibiotics from pcp Lesions: Location: right forearm and back Duration: years Quality: itchy Associated symptoms: non-healing Treatments: none Established patient All pertinent medical history, medications, and allergies were reviewed. General Exam: alert, oriented to person, place, and time, normal affect, well appearing Unaccompanied A focused exam completed based on patient reported problems, see below: Skin Exam 1. OTHER ATOPIC DERMATITIS Left Foot - Posterior, Right Foot - Posterior Scaly erythematous plaques +/- dyspigmentation, lichenification, excoriations. Improved since last visit Discussed that atopic dermatitis is a chronic condition that can be controlled but not cured. Continue Fluocinonide cream prn when flared, hold if smooth/asymptomatic. Encouraged daily moisturizing and gentle cleansers to prevent flares. Notify office if flaring despite treatment. Plan to follow up in 1 year. Related Medications fluocinonide (Lidex) 0.05 % ointment Apply to affected areas up to twice a day when flared, do not use on the face, groin, or underarms fluocinonide (Lidex) 0.05 % ointment Apply to affected areas, up to twice a day when flared, do not use one the face, groin, or underarms, 30 day supply 2. ONYCHOMYCOSIS (2) Left Hallux Proximal Nail Fold of Toe, Right Hallux Toenail Subungual hyperkeratosis with nail thickening The patient was informed that onychomycosis is a fungal infection of the nails. Treatment is not necessary, but can be treated with topical or oral antifungal agents. Recurrence can occur despite treatment in some cases. The goal is to grow out a normal nail which can take several months to occur. Start Lamisil once daily x 3 months. Referral sent to [facility]. Related Procedures Ambulatory referral to Podiatry Related Medications terbinafine (LamISIL) 250 MG tablet Take 1 tablet, by mouth, once daily, 90 days 3. INFLAMED SEBORRHEIC KERATOSIS (2) Right Flank, Right Forearm - Posterior Inflamed seborrheic keratoses: pink and brown stuck on verrucous scaly papule with surrounding erythema and bloody crust. The patient was informed that symptomatic seborrheic keratoses are benign growths that become inflamed, itchy, tender, traumatized, caught on clothing, or bleed. Symptomatic lesions can be treated with cryotherapy or curretage. Thicker lesions treated with cryotherapy may require more than one treatment. The patient was instructed to notify the office if abnormal redness or tenderness develops at the treatment site. Cryotherapy today, see procedure note. Diagnosis: Inflamed seborrheic keratosis Indication: Inflamed Consent: Verbal consent was obtained and risks were discussed, including, but not limited to risks of scarring, darker or print shop chief clerk pigmentary changes, recurrence, incomplete removal and infection. Method: Liquid nitrogen was used to treat the lesion(s) with two 5-10 second freeze-thaw cycles Number of lesions treated: 2 Post-procedure instructions: Instructions were given orally and in writing. The office will be contacted if the lesion fails to resolve despite treatment, or if a side effect develops such as abnormal crusting, scabbing, redness or tenderness Cryotherapy, skin lesion - Right Flank, Right Forearm - Posterior Next Visit: 1 year, follow up documented in this encounter [facility] Evaluation note Note Date & Type Note Facility Evaluation note Diagnosis Other atopic dermatitis- Primary Onychomycosis Dermatophytosis of nail Inflamed seborrheic keratosis documented in this encounter [facility] Evaluation note Note Date & Type Note Facility Evaluation note Diagnosis Onychomycosis- Primary Dermatophytosis of nail Ingrown toenail Ingrowing nail Pain in toes of both feet Neuropathy Mononeuritis of unspecified site documented in this encounter [facility] Evaluation note Note Date & Type Note Facility Evaluation note Diagnosis Nail dystrophy- Primary Other specified disease of nail Pain in toes of both feet documented in this encounter [facility] Summary Purpose Family History No Family History Records FoundNo Family History Records Found Advance Directives No Advanced Directives Records FoundNo Advanced Directives Records Found Additional Source Comments INFORMATION SOURCE (unrecogn ized section and content) DATE CREATED AUTHOR 10/10/2022 [facility] pital DATE CREATED AUTHOR AUTHOR'S ORGANLEILANI ATION 11/07/[address] [facility] EPIC Reason for Visit (unrecogniz ed section and content) Reason Comments Nail Problem Suspicious Skin Lesion Care Teams (unrecognized sec tion and content) Seconds Handler Relationship Specialty Start Date End Date Santo Pink MD [address] [place] [address] PCP - General Family Medicine 10/14/24 Seconds Handler Relationship Specialty Start Date End Date Santo Pink MD [address] [place] [address] PCP - General Family Medicine 10/14/24 Seconds Handler Relationship Specialty Start Date End Date Santo Pink MD [address] [place] [address] PCP - General Family Medicine 10/14/24 Seconds Handler Relationship Specialty Start Date End Date Santo Pink MD [address] [place] [address] PCP - General Family Medicine 10/14/24 FOR RECORDS PERTAINING TO PATIENTS WHO ARE [...] BE BASED ON THE PRIMARY CLINICAL RECORDS. [employer] provides no warranty or guarantee of the accuracy or completeness of information in this document.
--- NOTE | 2025-01-17 16:30 | XR_ITS ---
[facility] [place] [id number] Patient Name: KHALIDA PRUITT MRN: [id number] date: 1955 Sex: F Assigned Patient Location: [facility] Current Patient Location: Accession/Order Number: [id number] Exam Date: 01/17/2025 16:25 Report Date: 01/18/2025 09:23 At the request of: SANTO KULKARNI MD Procedure: XR knee RT 3V RIGHT KNEE - 3 views COMPARISON: None CLINICAL DATA: Medial right knee pain for the past few weeks. Previous hemiknee arthroplasty. AP, lateral and internal oblique views were obtained. There is osteopenia. There is prior medial hemiknee arthroplasty. As visualized, the hardware appears intact and in appropriate position. No acute fractures or dislocation are seen. The lateral and patellofemoral joint spaces are maintained. Mild marginal spurring is seen. There is also spurring at the tibial spines. There is an enthesophyte at the insertion of the quadriceps tendon. A knee effusion is noted. XR/XR knee RT 3V IMPRESSION: POSTOPERATIVE AND DEGENERATIVE CHANGES. NO ACUTE BONY FINDINGS. Impression dictated by: Brissa Tenorio M.D. 01/18/2025 9:23 AM Dictation Location: [facility] Electronically authenticated by: [id number] Date: 01/18/2025 09:23
== END 2025-01-17 15:54 | disposition home or self-care (01) ==
PROVIDERS: PCP Family Medicine; Visit Provider Family Medicine
DX: M17.11 Unilateral primary osteoarthritis, right knee (principal)
CPT/HCPCS: 73562